=== PATIENT | female | born 1990 | race Caucasian/White ===

== ENCOUNTER 2021-10-29 17:39 | Emergency (ER) | payer OTHER ==
[2021-10-29 17:54] VITALS: BP 123/77; PULSE 81; RESP 18; TEMP 99.8; BMI 24.0
[2021-10-29 18:17] LABS: HEMATOCRIT 36.4 % (32.4-45.2); MCHC 35.6 g/dl (32.0-36.0); MEAN CELL VOLUME 87.1 fl (80-96); MEAN PLT VOLUME 7.9 fl (7.5-11.1); PLATELET COUNT 331.6 10^3/uL (134-434); RBC 4.18 10^6/uL (3.60-5.2); RDW 13.5 % (11.6-15.6); WHITE BLOOD COUNT 8.7 10^3/uL (4.0-10.8)
[2021-10-29 18:29] LABS: ALBUMIN 4.3 g/dl (3.4-5.0); BILIRUBIN,TOTAL 0.5 mg/dl (0.2-1); CREATININE 0.5 mg/dl (0.55-1.3); TOT PROT 7.4 g/dl (6.4-8.2)
[2021-10-29 19:50] LABS: PLATELET ESTIMATE ADEQUATE
== END 2021-10-29 20:35 | disposition home or self-care (01) ==
LOC: FER 17:39
DX: Z34.90 Encounter for supervision of normal pregnancy, unspecified, unspecified trimester (principal)
CPT/HCPCS: 36415; 76830-TC; 80053; 81025; 84702; 85025; 86850; 86900; 86901; 99284-25